=== PATIENT | female | born 1950 | race African-American/Black ===

== ENCOUNTER 2018-10-26 16:01 | Inpatient (IN) | payer MEDICARE, MEDICAID ==
[~2018-10-26] VITALS: Ht 152.4 cm; Wt 34.2 kg
[~2018-10-26 16:01] MED LIST: VICODIN
[2018-10-26 17:48] LABS: BASOPHILS % 0.2 % (0.0-2.0); HEMATOCRIT. 46.1 % (36.0-48.0); HEMOGLOBIN. 14.5 g/dL (12.0-16.0); LYMPHOCYTES % 28.2 % (20.0-50.0); MEAN CORPUSCULAR HEMOGLOBIN 26.4 pg (28.0-32.0); MEAN CORPUSCULAR VOLUME 83.8 fL (81.0-99.0); MEAN PLATELET VOLUME 8.2 fl (7.4-10.4); MONOCYTES % 13.2 % (2.0-8.0); NEUTROPHILS % 58.4 % (40.0-76.0); PLATELET 188 x1000/uL (130-400); RED CELL DISTRIBUTION WIDTH 14.8 % (11.6-14.6)
[2018-10-26 17:53] LABS: CHLORIDE 107 mEq/L (98-107)
[2018-10-26] MEDS ORDERED: SODIUM CHLORIDE 0.9% 1000ML BAG (SEPSIS BOLUS) IV ONE (18:45)
[2018-10-26] MEDS ORDERED: PIPERACILLIN/TAZ 3.375G PREMIX 50 ML IV ONE ×2 (19:00)
[2018-10-26] MEDS ORDERED: VANCOMYCIN 1 G PREMIX 200 ML IV ONE (19:00)
[2018-10-27] MEDS ORDERED: OLANZAPINE 10 MG/VIAL IM ONE (00:45)
[2018-10-27 02:44] VITALS: BP 135/85
[2018-10-27] MEDS ORDERED: CLONIDINE 0.1MG TABLET PO PRN (03:15)
[2018-10-27] MEDS ORDERED: ACETAMINOPHEN 325MG TABLET PO PRN ×2 (03:15→21:00)
[2018-10-27] MEDS ORDERED: IPRATROPIUM/ALBUTEROL 0.5-3(2.5)MG/3ML NEB HHN PRN (03:15)
[2018-10-27 04:01] VITALS: BP 132/84
[2018-10-27] MEDS ORDERED: GABA-529 MT (05:44)
[2018-10-27 08:00] VITALS: BP 137/84
[2018-10-27 10:04] LABS: ETHANOL BLOOD < 10 mg/dL
[2018-10-27 10:22] LABS: D-DIMER 11.85 mg/L FEU (<0.50); INR 1.1; PARTIAL THROMBOPLASTIN TIME 27.5 sec (23.4-31.0); PROTHROMBIN TIME 11.4 sec (9.6-11.0)
[2018-10-27 12:00] VITALS: BP 136/91
[2018-10-27] MEDS: HYDROCODONE/ACETAMINOPHEN 5/325MG TABLET PO PRN (13:42)
[2018-10-27 16:00] VITALS: BP 126/86
[2018-10-27] MEDS ORDERED: IOHEXOL-350 100 ML BOTTLE ONE (18:57)
[2018-10-27 20:00] VITALS: BP 135/79
[2018-10-27] MEDS: NYSTATIN 100,000 UNITS/GM CREAM 15GM TOP SCH (20:44)
[2018-10-27] MEDS ORDERED: ONDANSETRON HCL 4MG/2ML INJ IV PRN (21:00)
[2018-10-27] MEDS ORDERED: IPRATROPIUM/ALBUTEROL 0.5-3(2.5)MG/3ML NEB HHN SCH (21:00)
[2018-10-27] MEDS ORDERED: LORAZEPAM 1MG TABLET PO PRN (21:00)
[2018-10-27] MEDS ORDERED: DIPHENHYDRAMINE 50MG/ML VIAL IV PRN (21:00)
[2018-10-27] MEDS ORDERED: GUAIFENESIN 200MG/10ML SUGAR FREE UDC PO PRN (21:00)
[2018-10-27] MEDS: FAMOTIDINE 20MG TABLET PO SCH (21:29)
[2018-10-27] MEDS: METHYLPREDNISOLONE SOD SUCC 125 MG/2 ML VIAL IV SCH (21:30)
[2018-10-27] MEDS: SODIUM CHLORIDE 0.9% INJ 3ML FLUSH IVF SCH (21:30)
[2018-10-28 00:05] VITALS: BP 132/80
[2018-10-28 04:00] VITALS: BP 129/68
[2018-10-28] MEDS: SODIUM CHLORIDE 0.9% INJ 3ML FLUSH IVF SCH ×2 (05:00→16:09)
[2018-10-28] MEDS: METHYLPREDNISOLONE SOD SUCC 125 MG/2 ML VIAL IV SCH ×2 (05:00→16:09)
[2018-10-28 08:20] VITALS: BP 139/72
[2018-10-28] MEDS ORDERED: ENOXAPARIN 30MG/0.3ML SYR SUBCUT SCH (09:00)
[2018-10-28] MEDS: NYSTATIN 100,000 UNITS/GM CREAM 15GM TOP SCH ×2 (09:14→20:41)
[2018-10-28] MEDS: APIXABAN 5 MG TABLET PO SCH ×2 (09:14→19:01)
[2018-10-28] MEDS: FAMOTIDINE 20MG TABLET PO SCH (09:14)
[2018-10-28 12:00] VITALS: BP 112/91
[2018-10-28 16:00] VITALS: BP 122/49
[2018-10-28 17:01] LABS: OPIATES URINE SCREEN PRESUMTIVE POSITIVE (NEGATIVE); PHENCYCLIDINE URINE SCREEN NEGATIVE (NEGATIVE)
[2018-10-28 17:02] LABS: *AMPHETAMINES SCREEN URINE NEGATIVE (NEGATIVE); *BARBITURATES SCREEN URINE NEGATIVE (NEGATIVE); *BENZODIAZEPINES SCREEN URINE NEGATIVE (NEGATIVE); *COCAINE SCREEN URINE NEGATIVE (NEGATIVE); CANNABINOID URINE SCREEN PRESUMTIVE POSITIVE (NEGATIVE); METHADONE URINE SCREEN NEGATIVE (NEGATIVE)
[2018-10-28] MEDS: HYDROCODONE/ACETAMINOPHEN 5/325MG TABLET PO PRN (19:56)
[2018-10-28 20:00] VITALS: BP 152/86
[2018-10-29] MEDS ORDERED: METHYLPREDNISOLONE SOD SUCC 40 MG/ML VIAL IV SCH
== END 2018-10-28 22:22 | disposition left against medical advice (07) | DRG 189 ==
LOC: ER 17:26 → 5WST 20:51 → EDBEDREQ 20:53 → EDBEDREQTM 20:53 → ENRESERV 22:30
PROVIDERS: ADMIT Internal Medicine; ATTEND Internal Medicine
DX: J96.90 Respiratory failure, unspecified, unspecified whether with hypoxia or hypercapnia (principal); J44.1 Chronic obstructive pulmonary disease with (acute) exacerbation; I82.621 Acute embolism and thrombosis of deep veins of right upper extremity; Z68.1 Body mass index [BMI] 19.9 or less, adult; R62.7 Adult failure to thrive; L89.219 Pressure ulcer of right hip, unspecified stage; L30.4 Erythema intertrigo; L90.5 Scar conditions and fibrosis of skin; F14.90 Cocaine use, unspecified, uncomplicated; I10 Essential (primary) hypertension; M19.90 Unspecified osteoarthritis, unspecified site; Z88.2 Allergy status to sulfonamides; Z79.899 Other long term (current) drug therapy; Z86.73 Personal history of transient ischemic attack (TIA), and cerebral infarction without residual deficits; Z72.89 Other problems related to lifestyle; Z72.0 Tobacco use
CPT/HCPCS: 36415; 71045; 71275; 80305; 80320; 82140; 83605; 83880; 84134; 84484; 85379; 86850; 86900; 93005; 93970; 96365; 96375; 99285; J2543; J2930; J3370; J3490; Q9967; G0480